=== PATIENT | female | born 1995 | race Caucasian/White ===

== ENCOUNTER 2020-06-12 16:49 | Emergency (ER) | payer MEDICAID ==
[~2020-06-12] VITALS: Ht 165.1 cm; Wt 84.0 kg
--- NOTE | 2020-06-12 18:38 | PHYS DOC ---
General Adult EDM: Chief Complaint: ABDOMINAL PAIN HPI: HPI: 24-year-old female presents with lower pelvic and vaginal pain. The patient was showing some kind of pornography video with a vibrator about a week ago. Since that time, she has been having vaginal discomfort and pain. She does not believe there is any retained equipment in her vagina. She describes it as a deep cramping with occasional sharp shooting pain that radiates up her abdomen. She feels like there is a fullness in her vagina. She does not have urinary retention, but does have to push to urinate. She had intercourse 2 days ago and it was painful. She is supposed to be on her period at this time, but it is lasting longer than usual. The patient had an in April and this is her first menses after that. She denies fever chills. Review of Systems: Review of Systems: Constitutional: Denies fever or chills Eyes: Denies change in visual acuity HENT: Denies nasal congestion or sore throat Respiratory: Denies cough or shortness of breath Cardiovascular: Denies chest pain or edema GI: Lower abdominal pain. Denies nausea, vomiting, bloody stools or diarrhea : Vaginal pain Musculoskeletal: Denies back pain or joint pain Integument: Denies rash Neurologic: Denies headache, focal weakness or sensory changes Endocrine: Denies polyuria or polydipsia Lymphatic: Denies swollen glands Psychiatric: Denies depression or anxiety Heart Score: Risk Factors: Risk Factors: DM, Current or recent (<one month) smoker, HTN, HLP, family history of CAD, obesity. Risk Scores: Score 0 - 3: 2.5% MACE over next 6 weeks - Discharge Home Score 4 - 6: 20.3% MACE over next 6 weeks - Admit for Clinical Observation Score 7 - 10: 72.7% MACE over next 6 weeks - Early Invasive Strategies Physical Exam: PE: Constitutional: Well developed, well nourished, no acute distress, non-toxic appearance. [] HENT: Normocephalic, atraumatic, bilateral external ears normal, oropharynx moist, no oral exudates, nose normal. [] Eyes: PERRLA, EOMI, conjunctiva normal, no discharge. [] Neck: Normal range of motion, no tenderness, supple, no stridor. [] Cardiovascular:Heart rate regular rhythm, no murmur [] Lungs & Thorax: Bilateral breath sounds clear to auscultation [] Abdomen: Bowel sounds normal, soft, no tenderness, no masses, no pulsatile masses. [] Skin: Warm, dry, no erythema, no rash. [] Back: No tenderness, no CVA tenderness. [] Extremities: No tenderness, no cyanosis, no clubbing, ROM intact, no edema. [] Neurologic: Alert and oriented X 3, normal motor function, normal sensory function, no focal deficits noted. [] Psychologic: Affect normal, judgement normal, mood normal. : Normal external genitalia, dark brownish-red discharge with granular substance, pain with exam. Cervical motion tenderness. [] EKG: EKG: [] Radiology/Procedures: Radiology/Procedures: [] Impressions: Examination: CT ABD PELV W/ IV CONTRST ONLY History: Reason: lower pelvic pain, VAGINAL PAIN X 1 WEEK / Spl. Instructions: / History: Comparison/Correlation: None Findings: Axial images of the abdomen and pelvis were obtained following IV contrast. Sagittal and coronal reformatted images were provided. Measures and bases are clear. Liver, spleen, pancreas, adrenal glands, and kidneys are normal. Moderate quantity of stool in the colon is present. Fluid subjacent to the cecum is present. Moderate complex fluid is present in the cul-de-sac. Multiple adnexal follicles noted bilaterally. Subtle stranding about the uterus noted. Right adnexal follicle measuring 2.3 cm x 1.4 cm present. There is no bowel obstruction or extraluminal gas. Appendix is not definitely delineated. Tubular structure is seen at the posterior aspect of the upper pelvis including on axial image 61 of series 2 but this does not appear to be contiguous with the cecum. Mesenteric lymph nodes are present and not enlarged. Urinary bladder is unremarkable. Uterus is unremarkable. Bony structures unremarkable. Impression: Complex fluid within cul-de-sac and to lesser extent adjacent to the cecum. Correlate for underlying pelvic inflammatory disease or other infectious etiology. Appendix is not definitely delineated. Correlate alternatively for possibility of appendicitis. PQRS Compliance Statement: One or more of the following individualized dose reduction techniques were utilized for this examination: 1. Automated exposure control 2. Adjustment of the mA and/or kV according to patient size 3. Use of iterative reconstruction technique Electronically signed by: Caitlin Colin MD (06/12/2020 8:22 PM) [facility] DICTATED AND SIGNED BY: CAITLIN COLIN MD DATE: 06/12/202021 CC: ARMIDA PISANO DO; PCP,ALEXANDRO ~ Course & Med Decision Making: Course & Med Decision Making Pertinent Labs and Imaging studies reviewed. (See chart for details) [] Dragon Disclaimer: Dragon Disclaimer: This electronic medical record was generated, in whole or in part, using a voice recognition dictation system. Departure Departure: Impression: Primary Impression: Bacterial vaginosis Additional Impression: Pelvic inflammatory disease (PID) Disposition: HOME/RESIDENCE PRIOR TO ADM Condition: STABLE Referrals: PCP,ALEXANDRO (PCP) Patient Instructions: Bacterial Vaginosis, [id number], Pelvic Inflammatory Disease, [id number] Scripts Metronidazole (METRONIDAZOLE) 500 Mg Tablet 1 TAB PO BID for bacterial vaginosis for 7 Days, #14 TAB 0 Refills Prov: ARMIDA PISANO DO 06/12/20 Justification of Admission: Justification of Admission: Justification of Admission Dx: N/A ARMIDA PISANO DO Jun 12, 2020 18:38
[2020-06-12] MEDS ORDERED: IOHEXOL 300 MG/ML 75 ML VIAL. IV ONE (19:00)
--- NOTE | 2020-06-12 20:25 | RAD ---
Examination: CT ABD PELV W/ IV CONTRST ONLY History: Reason: lower pelvic pain, VAGINAL PAIN X 1 WEEK / Spl. Instructions: / History: Comparison/Correlation: None Findings: Axial images of the abdomen and pelvis were obtained following IV contrast. Sagittal and coronal reformatted images were provided. Measures and bases are clear. Liver, spleen, pancreas, adrenal glands, and kidneys are normal. Moderate quantity of stool in the colon is present. Fluid subjacent to the cecum is present. Moderate complex fluid is present in the cul-de-sac. Multiple adnexal follicles noted bilaterally. Subtle stranding about the uterus noted. Right adnexal follicle measuring 2.3 cm x 1.4 cm present. There is no bowel obstruction or extraluminal gas. Appendix is not definitely delineated. Tubular structure is seen at the posterior aspect of the upper pelvis including on axial image 61 of series 2 but this does not appear to be contiguous with the cecum. Mesenteric lymph nodes are present and not enlarged. Urinary bladder is unremarkable. Uterus is unremarkable. Bony structures unremarkable. Impression: Complex fluid within cul-de-sac and to lesser extent adjacent to the cecum. Correlate for underlying pelvic inflammatory disease or other infectious etiology. Appendix is not definitely delineated. Correlate alternatively for possibility of appendicitis. PQRS Compliance Statement: One or more of the following individualized dose reduction techniques were utilized for this examination: 1. Automated exposure control 2. Adjustment of the mA and/or kV according to patient size 3. Use of iterative reconstruction technique Electronically signed by: Darren Quintero MD (06/12/2020 8:22 PM) [facility]
[2020-06-12] MEDS ORDERED: METR-34 PO (20:58)
[2020-06-12] MEDS ORDERED: AZITHROMYCIN 250 MG TABLET. PO ONE (21:00)
[2020-06-12] MEDS ORDERED: cefTRIAXone IM 250 MG VIAL IM ONE (21:00)
[2020-06-12 21:30] VITALS: BP 119/60
[2020-06-12] MEDS ORDERED: metroNIDAZOLE 500 MG TABLET PO ONE (21:30)
[2020-06-14 23:07] LABS: CHLAMYDIA PROBE Negative (Negative)
== END 2020-06-12 21:30 | disposition home or self-care (01) ==
LOC: ER 16:49
DX: N76.0 Acute vaginitis (principal); B96.89 Other specified bacterial agents as the cause of diseases classified elsewhere; N73.9 Female pelvic inflammatory disease, unspecified
CPT/HCPCS: 36415; 74177; 84702; 87491; 87591; 96372; 99285; J0456; J0696; Q0111; Q9967